=== PATIENT | female | born 1955 | race American Indian/Alaskan Native ===

== ENCOUNTER 2018-10-22 07:01 | Day surgery (SDC) | payer OTHER ==
[2018-10-21 13:48] VITALS: BMI 36.0
[2018-10-22] MEDS ORDERED: Propofol 10 mg/ml Inj (20 ML) ONE (09:09)
[2018-10-22] MEDS ORDERED: Lactated Ringer's 1,000 ML IV ONE (09:09)
--- NOTE | 2018-10-22 09:11 | CP.SDSHP ---
Same Day Surgery H & P - History Proposed Procedure: COLONSCOPY Pre-Op Diagnosis: SEE NOTES - Previous Medical/Surgical History Cardiac: Hypertension Endocrine/Metabolic: Other Misc: Other Pain: 4.Moderate Pain - Allergies Allergies: Allergies Iodine and Iodide Containing Produc Allergy (Verified 10/22/18 07:38) SWELLING Latex, Natural Rubber Allergy (Verified 10/22/18 07:38) ITCHING tomato Allergy (Verified 10/22/18 07:38) RASH seafood Allergy (Uncoded 10/22/18 07:38) RASH - Physical Exam General Appearance: N Vital Signs: Vital Signs 10/22/18 07:40 Temperature 98.0 F Pulse Rate 77 Respiratory 19 Rate Blood Pressure 139/53 L Mental Status: Alert & Oriented x3 Neuro: WNL Heart: Other Lungs: WNL GI: Other - {Optional Preform as Required} Breast: WNL Abdomen: Other Rectal: Other Integument: WNL : WNL Ortho: WNL ENT: WNL - Impression Pt. Evaluated Today:Candidate for Anesthesia & Procedure: Yes - Date & Time Time: 09:10 Short Stay Discharge - Short Stay Discharge Admitting Diagnosis/Reason for Visit: CHANGE IN BOWEL HABIT Disposition: HOME/ ROUTINE
[2018-10-22] MEDS ORDERED: Belladonna-Phenobarbital PO ONE (09:30)
[2018-10-22 09:51] VITALS: TEMP 97.5; O2SAT 100
[2018-10-22 10:14] VITALS: PULSE 73; RESP 14
[2018-10-22 10:29] VITALS: BP 133/86
== END 2018-10-22 10:27 | disposition home or self-care (01) ==
LOC: C.ENDO 07:01
PROVIDERS: ATTEND Specialist
DX: K52.9 Noninfective gastroenteritis and colitis, unspecified (principal); R19.4 Change in bowel habit; R10.84 Generalized abdominal pain; K57.30 Diverticulosis of large intestine without perforation or abscess without bleeding; K64.8 Other hemorrhoids; I10 Essential (primary) hypertension; E78.5 Hyperlipidemia, unspecified
CPT/HCPCS: 45380; 88305; J2704; J7120